=== PATIENT | female | born 1975 | race Hispanic/Latino ===

== ENCOUNTER 2020-10-05 13:10 | Emergency (ER) | payer SELFPAY ==
[2020-10-05] MEDS ORDERED: ASPIRIN 325 MG TAB PO ONE (13:31)
--- NOTE | 2020-10-05 14:35 | XRay Report ---
CHEST 2 VIEWS INDICATION / CLINICAL INFORMATION: Chest pain. COMPARISON: None available. FINDINGS: SUPPORT DEVICES: None. HEART / MEDIASTINUM: No significant abnormality. LUNGS / PLEURA: No significant pulmonary or pleural abnormality. No pneumothorax. ADDITIONAL FINDINGS: No significant additional findings. IMPRESSION: 1. No acute findings. Signer Name: Kaylyn Biggs MD Signed: 10/05/2020 2:31 PM Workstation Name: [id number]
[2020-10-05 14:42] LABS: Basophils % (Auto) 0.4 % (0.0-1.8); Eosinophils # (Auto) 0.1 K/mm3 (0.0-0.4); Eosinophils % (Auto) 1.4 % (0.0-4.3); Hematocrit 42.8 % (30.3-42.9); Hemoglobin 14.4 gm/dl (10.1-14.3); Lymphocytes # (Auto) 2.9 K/mm3 (1.2-5.4); Lymphocytes % (Auto) 29.4 % (13.4-35.0); Mean Corpuscular HGB Conc 34 % (30-34); Mean Corpuscular Volume 98 fl (79-97); Monocytes # (Auto) 0.7 K/mm3 (0.0-0.8); Monocytes % (Auto) 6.5 % (0.0-7.3); Platelet Count 322 K/mm3 (140-440); Red Blood Count 4.36 M/mm3 (3.65-5.03); Red Cell Distribution Width 14.1 % (13.2-15.2)
[2020-10-05 14:52] LABS: Alanine Aminotransferase 27 units/L (7-56); Albumin 4.1 g/dL (3.9-5); Blood Urea Nitrogen 12 mg/dL (7-17); Calcium 8.8 mg/dL (8.4-10.2); Hemolysis Index 15
[2020-10-05 15:05] LABS: BUN/Creatinine Ratio 20
--- NOTE | 2020-10-05 15:46 | Event Note ---
ED Screening Note Date of service: 10/05/20 Time: 15:44 ED Screening Note: 45-year-old female patient with history of tobacco use, BMI >30, and family history of heart disease presents to the emergency department with complaints of chest pain with associated shortness of breath and paresthesias in both arms awakening her from sleep this morning. Patient has experienced shortness of breath intermittently for approximately 1 year but has never experienced chest pain until today. No identifiable exacerbating or relieving factors. Describes the pain as "pressure," non-radiating, currently resolved. Patient's brother from myocardial infarction at age 43. Patient has not been evaluated by primary care provider since childhood. She has never undergone any type of cardiac evaluation. General: Awake, appropriately interactive, no acute distress. Neck: Supple. Full range of motion intact. Cardiovascular: Normal peripheral perfusion. Pulmonary: No respiratory distress. Patient is speaking normally without use of accessory muscles. Skin: No apparent rashes or lesions. Neurological: No facial asymmetry. Speech is clear. Follows commands. Patient is alert and oriented. Musculoskeletal: Moves all four extremities spontaneously with normal range of motion. Psych: Cooperative. Appropriate mood and affect. I have greeted and performed a focused rapid initial assessment of this patient. A comprehensive ED assessment and evaluation of the patient, analysis of all t est results, and completion of the medical decision-making process will be conducted by additional ED providers. This initial assessment/diagnostic orders/clinical plan/treatment(s) is/are subject to change based on patients health status, clinical progression and re-assessment. Further treatment and workup at subsequent clinical provider's discretion. Patient/guardian urged not to elope from the ED as their condition may be serious if not clinically assessed and managed.
--- NOTE | 2020-10-05 17:52 | Emergency Department Report ---
ED Chest Pain HPI - General Chief Complaint: Chest Pain Stated Complaint: CHEST PAIN/SHORTNESS OF BREATH Time Seen by Provider: 10/05/20 17:35 Source: patient Mode of arrival: Ambulatory Limitations: No Limitations - History of Present Illness Initial Comments: 45-year-old female, no past medical history, presents to the ED with complaint of chest pain since last night. Patient states pain began while at rest. Located in the left chest. Patient reports pain is pressure-like and "rolling" in nature. She reports associated shortness of breath. Patient reports intermittent shortness of breath, off and on, for 1 year. Patient states she is unsure if her symptoms were possibly due to anxiety. Patient denies any diaphoresis, nausea or vomiting. Patient reports some swelling in her feet, however denies any lower leg pain or swelling. Patient reports tobacco use. Denies any cough or fever. Patient has not yet received a COVID-19 vaccine. MD Complaint: chest pain -: Last night Onset: during rest Pain Location: left chest Severity: moderate Severity scale (0 -10): 7 Quality: pressure Consistency: now resolved Improves With: nothing Worsens With: nothing re: dyspnea. denies: nausea, vomting, diaphoresis Other Symptoms: denies: cough, fever, leg swelling - Related Data Allergies Allergy/AdvReac Type Severity Reaction Status Date / Time No Known Allergies Allergy Unverified 10/05/20 13:13 Heart Score - HEART Score History: Slightly suspicious EKG: Normal Age: 45-65 Risk factors: 1-2 risk factors Troponin: < normal limit HEART Score: 2 - EKG Read Time Time EKG Completed: 13:24 EKG Read Time: 13:40 ED Review of Systems ROS: Stated complaint: CHEST PAIN/SHORTNESS OF BREATH Other details as noted in HPI Comment: All other systems reviewed and negative Constitutional: denies: fever Respiratory: shortness of breath. denies: cough Cardiovascular: chest pain Gastrointestinal: denies: nausea, vomiting Musculoskeletal: other (Denies leg pain or swelling) ED Past Medical Hx - Past Medical History Hx Psychiatric Treatment: No (anxiety) - Surgical History Past Surgical History?: Yes Additional Surgical History: tonsilectomy ED Physical Exam - General Limitations: No Limitations General appearance: alert, in no apparent distress, obese - Head Head exam: Present: atraumatic, normocephalic - Eye Eye exam: Present: normal appearance, EOMI - ENT ENT exam: Present: mucous membranes moist - Neck Neck exam: Present: normal inspection - Respiratory Respiratory exam: Present: normal lung sounds bilaterally. Absent: respiratory distress - Cardiovascular Cardiovascular Exam: Present: regular rate, normal rhythm - GI/Abdominal GI/Abdominal exam: Present: soft. Absent: distended, tenderness - Extremities Exam Extremities exam: Present: normal inspection. Absent: calf tenderness - Neurological Exam Neurological exam: Present: alert, oriented X3 - Psychiatric Psychiatric exam: Present: normal affect, normal mood - Skin Skin exam: Present: warm, dry, intact, normal color ED Course Vital Signs 10/05/20 10/05/20 10/05/20 13:16 17:53 17:58 Temperature 98.3 F Pulse Rate 89 74 Respiratory 18 18 Rate Blood Pressure 150/88 128/74 [Right] O2 Sat by Pulse 99 98 97 Oximetry ED Medical Decision Making - Lab Data Result diagrams: 10/05/20 14:17 10/05/20 14:17 - EKG Data -: EKG Interpreted by Nd EKG shows normal: sinus rhythm, axis, intervals, QRS complexes, ST-T waves Rate: normal - EKG Data Interpretation: no acute changes - Radiology Data Radiology results: report reviewed, image reviewed - Medical Decision Making 45-year-old female presents to ED with chest pain, onset last night. EKG shows no ST changes. Troponin negative x2. Vital signs are stable. Chest x-ray unremarkable. Patient chest pain-free at this time. Patient will be discharged home. Patient information faxed to [facility] for urgent cardiology follow-up. Return precautions given. - Differential Diagnosis ACS, pneumonia, CHF, anxiety Critical care attestation.: If time is entered above; I have spent that time in minutes in the direct care of this critically ill patient, excluding procedure time. ED Disposition Clinical Impression: Chest pain Disposition: DC-01 TO HOME OR SELFCARE Is pt being admited?: No Condition: Stable Instructions: Nonspecific Chest Pain, Adult Referrals: EMILIA MELVIN MD [Staff Physician] - 3-5 Days [facility] [Provider Group] - 3-5 Days EDWIGE ESPAÑA MD [Staff Physician] - 3-5 Days Forms: Work/School Release Form(ED) Time of Disposition: 18:29
[2020-10-05 19:08] VITALS: BP 144/87
--- NOTE | 2020-10-06 10:15 | Electrocardiograph Report ---
[facility] Test Date: 2020-10-05 Test Time: 13:24:33 Pat Name: ELBERT COLE Department: Room: Gender: F Lithostripper: KYUNG : 1975 Requested By: JUAN BOYD Order Number: [id number] Reading MD: Frederick Wyman Measurements Intervals [place] Rate: 74 P: 62 CO: 170 QRS: 70 QRSD: 79 T: 38 QT: 363 QTc: 402 Interpretive Statements Sinus rhythm Probable left atrial enlargement Anteroseptal infarct, age indeterminate No previous ECG available for comparison Electronically Signed On 10-06-2020 10:14:45 EDT by Frederick Wyman
== END 2020-10-05 19:08 | disposition home or self-care (01) ==
LOC: ED 13:10
DX: R07.89 Other chest pain (principal); Z90.89 Acquired absence of other organs; Z98.890 Other specified postprocedural states
CPT/HCPCS: 36415; 71046; 80053; 84484; 84703; 85025; 93005; 99284